=== PATIENT | female | born 1995 | race Asian ===

== ENCOUNTER 2022-06-11 13:42 | Emergency (ER) | payer BC ==
[~2022-06-11] VITALS: Ht 157.5 cm; Wt 52.2 kg
[2022-06-11 13:49] VITALS: BP_SYST 125
--- NOTE | 2022-06-11 13:55 | NUR ---
Patient triaged and placed in waiting room. VSS and patient appears in no acute distress at this time. Accompanied by SELF, awaiting available bed, and MD notified of need for MSE.
--- NOTE | 2022-06-11 14:00 | NUR ---
PT BIB BLS C/O ANXIETY.
--- NOTE | 2022-06-11 14:30 | NUR ---
ER at TRIAGE examining patient.
[2022-06-11] MEDS ORDERED: IBUPROFEN 800 MG TABLET PO ONE (15:00)
--- NOTE | 2022-06-11 15:19 | NUR ---
MEDICATED PER MD ORDER. NOTIFIED PRIMARY LETI MADRID.
[2022-06-11] MEDS ORDERED: IBUP-1971 PO (17:35)
[2022-06-11] MEDS ORDERED: ACET325T PO (17:35)
[2022-06-11] MEDS ORDERED: BENZ100C92 PO (17:35)
--- NOTE | 2022-06-11 18:25 | NUR ---
Patient NOT given written and verbal discharge instructions aprovided. Patient in stable condition. Rx of TYLENOL,MOTRIN,BENZONATATE SENT TO PHARMACY.
== END 2022-06-11 18:30 | disposition home or self-care (01) ==
LOC: SED 13:42
DX: B34.9 Viral infection, unspecified (principal); R50.9 Fever, unspecified; R05.9 Cough, unspecified; Z79.899 Other long term (current) drug therapy
CPT/HCPCS: 99283